=== PATIENT | male | born 1940 | race Caucasian/White ===

== ENCOUNTER 2019-12-08 23:06 | Emergency (ER) | payer MEDICARE, SELFPAY ==
[2019-12-08 23:07] VITALS: BP 107/76; PULSE 103; RESP 18; TEMP 36.3; O2SAT 95; BMI 20.9
[2019-12-08 23:09] VITALS: BP 107/76; PULSE 103; RESP 18; TEMP 36.3; O2SAT 95
--- NOTE | 2019-12-09 00:27 | ED.RN ---
PT STATES HE IS LEAVING. PT STATES I DONT THINK THIS IS ALL NECCESSARY, ITS ALL FROM MOWING THE LAWN. THIS RN EXPLAINED THE IMPORTANCE OF STAYING. PT SIGNED AMA PAPER. DR LAKHANI IS AWARE.
--- NOTE | 2019-12-09 04:50 | ED.VISSUMM ---
- ER Visit Summary Date of Service: 12/09/19 Chief Complaint: Fatigue and chills History of Present Illness: The patient is a 79 M who presents with fatigue and chills that began today. Patient states he was feeling tired while he was mowing his yard. Patient felt like he overexerted himself today. Patient states that when he was done mowing his yard he came inside and started having episode of shaking chills. Patient denies any cough or shortness of breath. Patient denies any chest pain. Patient denies any nausea or vomiting. Patient does admit to some dysuria. Patient denies any hematuria. Physical Examination: Vital signs are stable. Patient is afebrile. Patient is in no acute distress. Oral mucosa is pink and moist. Neck is supple. Trachea is midline. There is no JVD. Heart was regular rate and rhythm. Lungs are clear and equal bilaterally. Abdomen is soft. Bowel sounds are normal. There is no tenderness. Cranial nerves II through XII are intact. There are no focal motor or sensory deficits. Test Results: EKG, labs, and x-ray were ordered. Emergency Department Course and Treatment: Patient did not want to have any further testing done. Patient states he feels like he just overdid it and he overreacted by coming to the emergency department. Patient wants to go home. Patient was advised that this could be cardiac in nature and recommended staying for further evaluation. Patient refused and will leave AGAINST MEDICAL ADVICE. Patient understood. Patient was encouraged to follow-up with his primary care physician. Disposition: Discharge AGAINST MEDICAL ADVICE Impression: Fatigue This note was generated with [employer] dictation software. It may contain incorrect words, spelling, and punctuation that were not noted in review of the chart prior to signing ED Disposition - Plan for ED Patient: Disposition: Against Medical Advice Diagnosis: Fatigue Referrals: Anahy Ramirez MD [Primary Care Provider] - 3-5 Days
== END 2019-12-09 00:34 | disposition left against medical advice (07) ==
LOC: ED 12-09 00:31
PROVIDERS: Emergency Provider Emergency Medicine; PCP Internal Medicine
DX: R53.83 Other fatigue (principal); R30.0 Dysuria; R51 Headache; K21.9 Gastro-esophageal reflux disease without esophagitis; Z87.442 Personal history of urinary calculi
CPT/HCPCS: 96360; J7030; A4216

== ENCOUNTER → 2019-12-18 17:15 | Outpatient (CLI) | payer MEDICARE, SELFPAY ==
[2019-12-08 23:07] VITALS: BMI 20.9
== END ==
PROVIDERS: Visit Provider Urology
DX: N20.0 Calculus of kidney (principal)
CPT/HCPCS: 82360

== ENCOUNTER 2019-12-21 08:05 | Day surgery (SDC) | payer MEDICARE, SELFPAY ==
[2019-12-21] VITALS (8 sets, daily range): BP systolic 154–199; BP diastolic 68–95; PULSE 80–96; RESP 16–18; TEMP 36.8–38; O2SAT 92–98; BMI 20.7
[2019-12-21] MEDS: Lactated Ringers 1,000 ML 100 ML IV ×2 (08:29→10:45)
[2019-12-21] MEDS: Cefazolin 2 GM in 0.9% Normal Saline 100 ML IV (08:55)
--- NOTE | 2019-12-21 09:57 | PCM.HP.STD ---
Problem List (1) Ureteral calculi left side Status: Acute History of Present Illness Date of Admission: 12/21/19 Chief Complaint: Obstructing left ureteral calculi 3 in the left ureter and one in the kidney The patient is a 79 year old male presented the office with a large obstructing stone in the distal left ureter also has a stone up in the left kidney plan to proceed with balloon dilation of the ureter left ureteroscopy and laser lithotripsy of stones and stent placement. He understand the need a stent afterwards Past Medical History Allergies codeine Allergy (Verified 12/21/19 08:30) PT UNSURE OF REACTION Penicillins [PCN] Allergy (Verified 12/21/19 08:30) PT UNSURE OF REACTION Home Medications: Ambulatory Orders Medication Instructions Recorded Acetaminophen/Butalbital/Caffe 1 - 2 tab PO Q4H PRN PRN 12/20/19 [Fioricet] Calcitonin,[place],Synthetic 3.7 ml NS DAILY 12/20/19 [Calcitonin-[place]] Hydrocodone/Acetaminophen [[place] 1 ea PO PRN PRN 12/20/19 5-325 Tablet] Polyethylene Glycol 3350 [Miralax] 17 gm PO DAILY 12/20/19 Potassium Citrate/Citric Acid 473 ml PO DAILY 12/20/19 [Potassium Cit-Citric Acid Soln] Psyllium Husk [Metamucil] 0.4 gm PO DAILY 12/20/19 Tamsulosin HCl [Flomax] 0.4 mg PO QHS 12/20/19 Surgical History: no surgical history Smoking Status: Former smoker Tobacco Use: Non-smoker Review of Systems Constitutional: Denies: Chills, Fever, Weight Change HEENT: Denies: Head Aches, Sinus Congestion, Sinus Drainage Cardiovascular: Denies: Chest Pain, Palpitations Respiratory: Denies: Cough, Shortness of breath at rest, Sputum production Gastrointestinal: Denies: Abdominal Pain, Nausea, Vomiting Genitourinary: Denies: Dysuria Musculoskeletal: Denies: Joint Pain, Joint Tenderness Skin: Denies: Rash, Wounds Neurological: Denies: Numbness, Tingling, Focal weakness Psychiatric: Denies: Anxiety, Depression, Homicidal Ideations, Suicidal Ideations Hematologic/ Lymphatic: Denies: Easy Bruising, Easy Bleeding VTE Information - Inpt Only VTE Present on Admission: No VTE Mechan Device Prophylaxis: SCD's Patient Problems: Active and Suspected Problems Ureteral calculi left side (Acute) - Physical Exam Vitals/I&O's: Vital Signs Temp Pulse Resp BP Pulse Ox 98.2 F 87 16 154/78 H 98 12/21/19 08:30 12/21/19 08:30 12/21/19 08:30 12/21/19 08:30 12/21/19 08:30 Oxygen Delivery Method Room Air Weight: 58.4 kg Body Mass Index (BMI) 20.7 Intake and Output for Last 24 Hours 12/19/19 12/20/19 12/21/19 23:59 23:59 23:59 Intake Total 110 / 110 Balance 110 / 110 General: Alert, Oriented x3, Cooperative HEENT: Atraumatic, PERRLA, EOMI, Normocephalic Neck: Supple, No JVD, Negative Carotid Bruits Lungs: Clear to auscultation, Normal air movement Cardiovascular: Regular rate, No murmurs Abdomen: Bowel Sounds Present, Soft, Non Tender Extremities: No edema, Capillary Refill Less than 3 Seconds Skin: No rashes, No breakdown Musculoskeletal: No Tenderness to Palpation of Joints or Extremities Neurological: Cranial nerves II-XII grossly intact Psych/Mental Status: Normal Affect, Appropriate Microbiology Past 72 Hours 12/20/19 11:45 Mucosa - Nasopharyngeal Coronavirus COVID-19 PCR - Final Current Medications Lactated Ringer's () 1,000 mls @ 100 mls/hr IV .Q10H NICK Last Admin: 12/21/19 08:29 Dose: 100 mls/hr Documented by: Assessment/Plan All Active Problems Ureteral calculi left side (Acute) Plan to proceed with left ureteroscopy laser lithotripsy of stones and stent placement. Essential Procedure Criteria Procedure Essential: Yes Criteria Note: On 10/23/2019 the [place] Department of Health ([facility]) Public Order signed by [facility] Director Aida Mccarthy M.D., regarding the Management of Non-Essential Surgeries and Procedures for the purpose of preserving Personal Protective Equipment (PPE) and critical hospital capacity and resources within [place] went into effect as of 10/24/2019 at 5:00PM. According to the [facility] Public Order: This action will remain in full force and effect until the State of Emergency declared by the Governor no longer exists or the Director of the [facility] rescinds or modifies this Order.. This [facility] order stated all non-essential or elective surgeries and procedures that utilize PPE should be delayed unless there is undue risk to the current or future health of a patient. After reviewing the aforementioned [facility] Public Order and the patients clinical case, I have determined that the scheduled procedure meets the criteria to go forward. Risk to Patient if Procedure Delayed: Risk of rapidly worsening to severe symptoms if delayed
--- NOTE | 2019-12-21 09:59 | PCM.DC.URO ---
Discharge Diet: No Restrictions, Light diet - advance as tolerated Discharge Activity: Return to Normal Activity, May Not Drive - for 2 days. Additional Activity Instructions:: 70. Please be aware that pain medications may cause nausea. You should typically eat light foods as you take your pain medication. Pain medication may cause constipation, if this is a problem for you, please discuss with your doctor. Allergies/Adverse Reactions: Allergies codeine Allergy (Verified 12/21/19 08:30) PT UNSURE OF REACTION Penicillins [PCN] Allergy (Verified 12/21/19 08:30) PT UNSURE OF REACTION Medications to take at Discharge Acetaminophen/Butalbital/Caffe [Fioricet] 1 - 2 tab PO Q4H PRN PRN 12/20/19 Calcitonin,[place],Synthetic [Calcitonin-[place]] 3.7 ml NS DAILY 12/20/19 Hydrocodone/Acetaminophen [[place] 5-325 Tablet] 1 ea PO PRN PRN 12/20/19 Polyethylene Glycol 3350 [Miralax] 17 gm PO DAILY 12/20/19 Potassium Citrate/Citric Acid [Potassium Cit-Citric Acid Soln] 473 ml PO DAILY 12/20/19 Psyllium Husk [Metamucil] 0.4 gm PO DAILY 12/20/19 Tamsulosin HCl [Flomax] 0.4 mg PO QHS 12/20/19 Primary Care Physician: Anahy Ramirez MD [Primary Care Provider] - Test Results: Test results from this visit will be discussed in further detail at your follow-up appointment, if applicable. Please Follow Up With: Bashir Lam MD When: please call to make an appointment.
--- NOTE | 2019-12-21 10:03 | OP.PCM_ITS ---
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 Left ureteroscopy laser lithotripsy of stones, basket extraction of the fragments, and left stent placement. Description of Surgical Findings:: 79-year-old male presents to my office for an evaluation on CAT scan he has 3 large stones in the distal ureter that have not been able to pass spontaneously on their own he also has some stones up in the kidney peers to have one large stone in the kidney some small other smaller fragments. Today we have taken to surgery for ureteroscopy and treatment of the stone so need a stent afterwards we talked about the risk of the procedure including bleeding, infection risk of injury or trauma to the ureter or damage to the ureter pain or discomfort with the stent pain with the surgery. Patient was very agitated about pain he had a lot of problems the pain control in the past we talked about what we could do to prevent pain and and control his pain during the procedure and afterwards as best as possible understands of the stent may also given some irritation. 79-year-old male was taken back to the operating room after smooth induction of general anesthesia. He is placed supine on the table. He was placed in dors olithotomy position. The penis and testicles were prepped and draped in usual sterile fashion. Went into the bladder with a 21 Filipino rigid cystourethroscope the entire length the urethra was normal no scar tissues along the urethral channel the sphincter was intact verumontanum was identified, he did have bilateral hypertrophy with obstruction, within the bladder he had significant trabeculation throughout the bladder no tumors were seen within the bladder but multiple trabeculation the sac is healed throughout the bladder the trigone was identified the right ureter orifice was identified the left ureteral orifice was identified, I then advanced a wire up the left ureteral orifice very difficult to get past the stone appeared to have a stricture in the ureter narrowing inflammation from the stone performed a retrograde pyelogram could see this on the retrograde pyelogram could see the contrast going up to the kidney as well I then advanced a 15 Filipino balloon dilator up to the stone and got beyond it with the balloon dilator and then balloon dilated the ureteral stricture that was caused by the stone in the formation narrowing that was can prevent my ability to reach the stone. After the stone in the ureter was dilated with a balloon dilator for 2 minutes and to set to subsequent the fraction. I then advanced the Pollack catheter further up in the kidney and put a 0.038 Bentson wire up in the kidney and left this in place as a safety wire for the entire case. We then drained the bladder and then went back into the bladder with a [employer] ACMI 7 Filipino ureteroscope semirigid, got into the bladder quite easily and then I could identify the ureteral orifice balloon dilation up or been performed I went into the ureteral orifice somewhat bloody as I got in within the clots cleared out and then identified 3 large fragments that were in the distal ureter, then a 270 ?m laser fiber was used we started off with 0.6 J and 6 Hz and lasered the stones into little tiny pieces after laser lithotripsy was completed on all 3stones these were many of the fragments passed into the bladder I then used a tipless basket from [employer] to extract the majority of the fragments out of the distal ureter, an attempt was made to get 1 of the fragments but there are very small. I then went back over the safety wire with the flexible ureteroscope from [employer] and 8 Filipino was able to navigate up the ureter up into the kidney once I got into the kidney contrast was put in the kidney and inspect and inspected the upper pole of the midpole in the lower pole the kidney and the lower pole the kidney there was another fragment that was seen 200 ?m laser fiber was advanced through the ureteroscope I then engaged in laser lithotripsy and the small fragment the lower pole the kidney and the stone was broken of the little tiny pieces using a 0.6 J and 15 Hz after lasering this completely then I worked my way down the ureter under direct visualization there is no injury or trauma trauma or perforation of the ureter is worked my way down then through the ureteroscope advanced a 0.038 Glidewire up into the kidney backed the ureteroscope off the Glidewire and then over the Glidewire advanced a 6 Filipino by 26 cm stent the stent advanced under fluoroscopic guidance up into the kidney once a stent reached the kidney the wire was pulled coiled up in the kidney and then pulled the wire some more than a coiled in the bladder I then went back in the bladder with a 21 Filipino rigid cystourethroscope I pulled on the string of the stent to adjust the stent to make sure that it was coiled in the kidney and bladder in good position once this was assured then the bladder was drained the cystoscope was removed then the end of the stent was tied and cut short to prevent accidental extraction but the string was stent left on the stent for easy extraction later on in the office. I will see the patient next week in the office with with a KUB and he will need a cystoscopy and stent removal to remove the stent it was a complete lasering of all 3stones. I go and talk to the family regarding the findings and surgery. Type of Anesthesia:: General Drains: stent left side - Admit VTE Documentation VTE Present on Admission: No VTE Mechan Device Prophylaxis: SCD's
[2019-12-21] MEDS: Ketorolac 15 MG/ML Vial IV (10:42)
== END 2019-12-21 12:18 | disposition home or self-care (01) ==
LOC: SDC 08:06 → AC 08:07
PROVIDERS: PCP Internal Medicine; Referring Provider Urology; Visit Provider Urology
PROC: 0TJ98ZZ Inspection of Ureter, Via Natural or Artificial Opening Endoscopic (ICD-10-PCS; CPT 52352; principal; 2019-12-21 08:45)
DX: N20.2 Calculus of kidney with calculus of ureter (principal); N32.89 Other specified disorders of bladder; J45.20 Mild intermittent asthma, uncomplicated; G43.909 Migraine, unspecified, not intractable, without status migrainosus; Z87.442 Personal history of urinary calculi; Z87.891 Personal history of nicotine dependence; Z88.0 Allergy status to penicillin; Z11.59 Encounter for screening for other viral diseases
CPT/HCPCS: 00918; 52356; 76000; 87635; G2023; J7120; C1726; C1769; C2617; J2405; U0002

== ENCOUNTER → 2019-12-25 08:37 | Outpatient (CLI) | payer MEDICARE, SELFPAY ==
[2019-12-21 08:30] VITALS: BMI 20.7
--- NOTE | 2019-12-25 08:42 | RAD_ITS ---
STUDY: X-RAY - ABDOMEN/PELVIS REASON FOR EXAM: Male, 79 years old. follow up kidney stones, surgery 12-21-19 TECHNIQUE: Single AP view of the abdomen / pelvis. COMPARISON: None. FINDINGS: Normal visualized lung bases. There is an unremarkable bowel gas pattern. There is no demonstrated free abdominal air. The visualized liver, spleen and kidneys are grossly normal in size and morphology. There is a left ureter stent in good position. Normal soft tissue structures. There are diffuse degenerative changes of the visualized lumbar spine. RAD/Abdomen Single View IMPRESSION: Normal x-ray examination of the abdomen and pelvis. Electronically Signed: Grecia Diaz, at 14:39 EDT Tel , Service support ,
== END ==
PROVIDERS: PCP Internal Medicine; Referring Provider Urology; Visit Provider Urology
DX: N20.2 Calculus of kidney with calculus of ureter (principal)
CPT/HCPCS: 74018

== ENCOUNTER → 2021-03-16 12:37 | Outpatient (CLI) | payer MEDICARE, SELFPAY ==
[2019-12-21 08:30] VITALS: BMI 20.7
--- NOTE | 2021-03-16 12:46 | CDU_ITS ---
Reason For Study: Hollenhorst plaque, left eye Rt. Velocities/BP Lt. Velocities/BP Prox CCA 99.5/13.4 cm/sec. Prox CCA 99.8/15.1 cm/sec. Mid CCA 72.1/12.1 cm/sec. Mid CCA 91.3/16.3 cm/sec. Dist CCA 60.4/13.4 cm/sec. Dist CCA 67.9/11.4 cm/sec. Prox ICA 58.6/12.4 cm/sec. Prox ICA 65.5/15.1 cm/sec. Mid ICA 59.7/14.6 cm/sec. Mid ICA 64.2/18.8 cm/sec. Dist ICA 54.2/14.6 cm/sec. Dist ICA 69.1/18.8 cm/sec. Rt. ICA/CCA = 0.83. Lt. ICA/CCA = 0.76. Prox ECA 74.7/8.2 cm/sec. Prox ECA 103.5/13.9 cm/sec. Rt. Vert. 44.3 cm/sec. Lt. Vert. 41.3/8.1 cm/sec. Right Extracranial There is homogeneous, smooth atherosclerotic plaque noted in the right common carotid artery. There is heterogeneous, irregular atherosclerotic plaque noted in the right internal carotid artery. There is intimal thickening but no significant atherosclerotic plaque noted in the right external carotid artery. Antegrade flow is noted in the right vertebral artery. Left Extracranial There is homogeneous, smooth atherosclerotic plaque noted in the left common carotid artery. There is heterogeneous, irregular atherosclerotic plaque noted in the left internal carotid artery. There is intimal thickening but no significant atherosclerotic plaque noted in the left external carotid artery. Antegrade flow is noted in the left vertebral artery. There is heterogeneous, irregular atherosclerotic plaque noted in the left bulb. Procedure Carotid Duplex 73176. This is a Carotid Duplex examination using B-mode, color flow and specral Doppler. Exam performed in department. VL/Carotid Duplex Ultrasound Interpretation Summary Mild (<50%) stenosis right extracranial internal carotid. Mild (<50%) stenosis left extracranial internal carotid. Flow within the vertebral arteries is antegrade bilaterally. Heterogeneous, irregular atherosclerotic plaque is noted in the left carotid bulb, which does not appear to be hemodynamically significant. Ordering Physician: Peyman Galvan Referring Physician: Anahy Ramirez M.D. Performed By: Lulú Lopez RVT
== END ==
PROVIDERS: PCP Internal Medicine; Referring Provider Ophthalmology; Visit Provider Ophthalmology
DX: H34.212 Partial retinal artery occlusion, left eye (principal)
CPT/HCPCS: 93880

== ENCOUNTER 2022-11-01 14:42 | Emergency (ER) | payer MEDICARE, SELFPAY ==
[2022-11-01 14:44] VITALS: BP 123/83; PULSE 78; RESP 18; TEMP 36.4; O2SAT 98; BMI 19.7
--- NOTE | 2022-11-01 14:51 | CM.ED ---
Social Work Note Referral Source: Pawan with Adult Protective Services Referral reason: SN[facility] Pawan with APS contacted BERNABE and reports the patient is on his way to ED due to weakness and increase in depressive symptoms since his was placed at [facility]. Pawan reports the patient wasn't eating or caring for himself, however, patient stayed over the weekend at [facility] with his as [facility] staff were concerned about patient being home alone. During patient's time at [facility] he did eat and wants to be placed at [facility] with his . BERNABE explained due to patient's insurance he would need precert for skilled, BERNABE will follow up with MD and patient once he arrives. Pawan requesting update regarding patient's discharge. Maricruz Durant MSW, GILMA
--- NOTE | 2022-11-01 15:32 | CT_ITS ---
STUDY: CT BRAIN WITHOUT CONTRAST REASON FOR EXAM: Male, 82 years old. Acute change mental status RADIATION DOSAGE (If Supplied By Facility): CTDIvol = ( 47.06 ) mGy, DLP = ( 837.39 ) mGycm TECHNIQUE: Transaxial CT imaging of the brain was performed without administration of intravenous contrast material. Individualized dose optimization techniques were used for this CT. COMPARISON: No relevant priors. FINDINGS: Normal soft tissue structures. Normal calvarium. Prominent ventricles and extra-axial spaces with atrophy. Mild white matter microangiopathic ischemic changes of the cerebral hemispheres. Normal basal ganglia and thalami. Normal brainstem. Normal cerebellum. There is no intracranial hemorrhage. There are no findings of an acute ischemic infarction. Normal visualized paranasal sinuses. CT/Brain/Head without Contrast IMPRESSION: Mild age-related changes. No acute intracranial pathology of the brain. Electronically Signed: Albaro Ortiz DO at 16:36 EDT ,
--- NOTE | 2022-11-01 15:40 | EDS_ITS ---
HPI History of Present Illness Chief Complaint: Weakness Detail of Chief Complaint: Inability to care for self, mental status change, unintentional weight loss Informant: patient and friend (Neighbor who has been involved for the past week.) Onset/Context/Timing Onset: - (Unknown. Per neighbor past several months) Context: - (Unknown) Timing: Continuous Quality: Forgetfulness, inability to care for self, weight loss, Location: Resides at home Current Severity: Unable to determine. Significant per neighbor Maximum Severity: Severe Worsened by: Unknown Relieved by: Unknown Associated Symptoms Associated Symptoms: Unknown Narrative Narrative: Patient is an 82-year-old male with history of hypertension who had Norvasc added to his present regimen. He states his primary care physician is Dr. Ramirez. He states things have gone haywire in his head. He denies headache, visual, ocular auditory symptoms. Nuys change in speech. Denies difficulty swallowing. He denies respiratory or cardiac symptoms. He denies nausea, vomiting or diarrhea. He denies change in bowels. He denies paresthesia, anesthesia or motor weakness. He does endorse significant weight loss over the past year. Neighbor who is willing to take him to a assisted if medically cleared inform he prior to this past week he had not seen him for Karishma months. He states this is a significant cell changer the past couple of months. He informed me that his was seen last Tuesday after a fall. She missed her dialysis on Tuesday. She missed another dialysis. She was admitted to hospital and he has been living at home by himself. Per neighbor there is some disarray at the home and concern he is unable to care for himself. Patient is a poor informant. He is not oriented. Prior similar symptoms: No Recent Illness/Hospitalization: No (Last ER visit was December 2019. laboratory results are July 2012.) [facility] Medical History (Updated 11/01/22 @ 16:[address] Thom Gillespie MD) Ureteral calculi left side Home Medications zsvvekpqna-jmkblowyrkysx-uygereac 50 mg-325 mg-40 mg tablet 1 - 2 tab PO Q4H PRN PRN Migraine Symptoms 12/20/19 [History Last Taken Unknown] amlodipine 2.5 mg tablet 2.5 mg PO DAILY 11/01/22 [History Last Taken Unknown] Allergy/AdvReac Type Severity Reaction Status Date / Time codeine Allergy PT UNSURE Verified 11/01/22 14:46 OF REACTION Penicillins [PCN] Allergy PT UNSURE Verified 11/01/22 14:46 OF REACTION Social History (Updated 11/01/22 @ 15:[address] Thom Gillespie MD) household members: spouse and other details: Presently living by himself. Smoking Status: Former smoker substance use type: does not use ROS ROS ED Review of Systems ROS Unobtainable: due to mental status and other Details: Limited due to change in mental status. Please read HPI narrative EXAM Physical Exam Const Vital Signs: 11/01/22 14:44 11/01/22 16:13 Temperature 97.6 F L Temperature Source Temporal Pulse Rate 78 Respiratory Rate 18 Respiratory Effort Normal Non-Labored Respiratory Pattern Normal Blood Pressure 123/83 H Blood Pressure Mean 96 Pulse Ox 98 Oxygen Delivery Method Room Air Positive cachectic General Appearance ED: cachectic and NAD; Negative for cyanotic or diaphoretic Nutritional Appearance: cachectic HEENT Reports dry mucous membranes HEENT Narrative: Head is atraumatic normocephalic. Ears normal. Nares patent. Uvula midline. Posterior pharynx is normal. Mouth ED: Yes dry mucous membranes Mouth: dry mucous membranes Eyes PERRL and EOMs intact bilaterally General Eye ED: Negative for pale conjunctiva or scleral icterus Neck no lymphadenopathy, supple and no JVD Chest Wall inspection of chest normal and palpation of chest normal Resp normal respiratory effort and clear to auscultation bilaterally Cardio regular rate, regular rhythm, S1 normal heart sound, S2 normal heart sound and no murmurs GI normal to inspection, nondistended, normoactive bowel sounds, non-tender, non- distended and no masses; Negative for hepatosplenomegaly Back/Spine no CVA tenderness Extremity normal to inspection General Extremety ED: Negative for edema or tenderness General Extremity: Negative for edema Neuro No oriented x3, CN's II-XII intact bilaterally and no sensory deficits noted Neuro Narrative: There is no clonus or Babinski sign right or left. Sensorium / Orientation: alert Psych Psych Narrative: Difficult to assess. Affect is flat. Skin no rashes or lesions noted, no wounds and No skin turgor normal General Skin Exam: Negative for elasticity normal or jaundice MDM MDM MDM Narrative Medical decision making narrative: History is limited due to altered mental status. With unintentional weight loss altered mental status will obtain CT of the head and chest to assess for malignancy. Blood work was obtained to assess for anemia, kidney failure, electrolyte abnormality. Hepatic profile was obtained to assess alkaline phosphatase and liver enzymes in the event a neoplasm is found and would be suggestive of metastasis. History & Record Review Discussion w/independent historian: Other (Neighbor as documented in the HPI narrative) Additional record(s) reviewed:: Prior outpatient record, Prior ED visit, Prior labs and Other (Prior outpatient record, ER record and labs were documented in the HPI narrative) Lab Data Attestation: I reviewed the patient's lab results. Lab results narrative: CBC is unremarkable. MCV is elevated. Comprehensive metabolic panel is remarkable for BUN of 19 otherwise all lab tests are negative. Labs: Laboratory Results - last 24 hr 11/01/22 11/01/22 15:50 15:50 WBC 5.1 RBC 4.24 L Hgb 13.7 Hct 42.0 MCV 99.1 H MCH 32.3 H MCHC 32.6 RDW Std Deviation 50.3 H RDW Coeff of Hilary 13.8 Plt Count 260 MPV 9.7 Immature Gran % (Auto) 0.400 Neut % (Auto) 70.6 H Lymph % (Auto) 14.8 L [place] % (Auto) 13.4 H Eos % (Auto) 0.6 Baso % (Auto) 0.2 Absolute Neuts (auto) 3.6 Absolute Lymphs (auto) 0.75 L Nucleated RBC % 0 Sodium 140 Potassium 3.5 Chloride 107 Carbon Dioxide 27.0 Anion Gap 6 BUN 19 H Creatinine 1.02 Estim Creat Clear Calc 42.30 Est GFR (MDRD) Af Amer 89 Est GFR (MDRD) Non-Af 74 BUN/Creatinine Ratio 18.6 Glucose 106 Calcium 9.0 Total Bilirubin 0.70 Direct Bilirubin 0.24 AST 25 ALT 34 Alkaline Phosphatase 64 Total Protein 7.4 Albumin 3.7 Globulin 3.7 Radiography Chest X-Ray - ED: 2 View and Read by ED Physician (2 view chest x-ray was independent reviewed interpreted by me and reveals no evidence of acute process. There is changes consistent with pulmonary disease. There are no lung lesions, infiltrates. There is no effusion. Mediastinum is normal. Cardiac silhouette size is normal. Osseous structures) Diagnostic Testing: Clinical Impression(s) from Imaging Studies Brain CT 11/01/22 15:32 IMPRESSION: Mild age-related changes. No acute intracranial pathology of the brain. Electronically Signed: Albaro Ortiz DO at 16:36 EDT , Chest X-Ray 11/01/22 16:02 IMPRESSION: No radiographic evidence of acute cardiopulmonary disease. Electronically Signed: Albaro Ortiz DO at 16:17 EDT , Management Discussion w/another healthcare provider: structural metal worker/Case management and Other Treatment and Re-Evaluation :: Since patient's CAT scan, chest x-ray, DBC basic metabolic panel liver profile are all normal he will be discharged to nursing facility. Neighbor is willing to take him. Discharge Plan Triage Chief Complaint: Weakness ED Provider: Thom Gillespie Dx/Rx/DC Orders Clinical Impression: Dementia, Hypertension, Acute alteration in mental status, Unintentional weight loss of less than 10% body weight within 6 months, Adult failure to thrive Instructions: ED CAREGIVER SUPPORT for DEMENTIA Prescriptions: No Action uzrsgvmqzx-bokkqkusrefrl-wzlm 1 TABLET tablet 1 - 2 tab PO Q4H PRN PRN (Reason: Migraine Symptoms) amlodipine 2.5 mg tablet 2.5 mg PO DAILY Label Comments: take 1 tablet by mouth once daily Primary Care Provider: Anahy Ramirez Referrals: Anahy Ramirez MD [Primary Care Provider] - Disposition Disposition: [facility]
[2022-11-01 16:00] LABS: Absolute Lymphocyte Count 0.75 X10^3/uL (0.83-4.51); Absolute Neutrophil Count 3.6 X10^3/uL (2.0-7.7); Basophil# 0.01 X10^3/uL; Basophil% 0.2 % (0-1); Eosinophil# 0.03 X10^3/uL; Eosinophils% 0.6 % (0-5); Hemoglobin 13.7 g/dL (13.0-16.5); Lymphocyte # 0.75 X10^3/ul (0.83-4.51); Lymphocyte % 14.8 % (19-41); Mean Corp Hgb Conc 32.6 g/dL (32-36); Mean Corpuscular Hgb 32.3 pg (27.0-32.0); Mean Corpuscular Volume 99.1 fL (80-94); Mean Platelet Vol. 9.7 fl (6.2-12.0); Monocyte# 0.68 X10^3/uL; Monocyte% 13.4 % (0-10); NRBC Flagged by Analyzer 0 % (0-5); Neutrophil # 3.57 X10^3/uL (2.7-7.7); Neutrophil % 70.6 % (47-70); Platelet Count 260 K/mm3 (150-450); RBC Distribution Width CV 13.8 % (11.6-14.6); RBC Distribution Width SD 50.3 fl (35.1-43.9); Red Blood Count 4.24 M/mm3 (4.6-6.2); White Blood Count 5.1 K/mm3 (4.4-11.0)
--- NOTE | 2022-11-01 16:02 | RAD_ITS ---
INDICATION: Unintentional weight loss, cachexia EXAMINATION/TECHNIQUE: X-RAY - XR Chest 2 Views COMPARISON: None. FINDINGS: LINES/DEVICES: None. LUNGS: No consolidation, edema or effusion. No pneumothorax. MEDIASTINUM AND CARDIOVASCULAR STRUCTURES: Cardiac silhouette not enlarged. Central airways and mediastinal contour are unremarkable. BONES AND SOFT TISSUES: Unremarkable. RAD/Chest PA and Lateral IMPRESSION: No radiographic evidence of acute cardiopulmonary disease. Electronically Signed: Albaro Ortiz DO at 16:17 EDT Reading Location ID and State: [facility] / [place] Tel [phone], Service support ,
[2022-11-01 16:13] LABS: AST(SGOT) 25 U/L (15-37); Alanine Aminotransfer ALT/SGPT 34 U/L (16-61); Albumin, Serum 3.7 g/dL (3.2-5.0); Alkaline Phosphatase 64 U/L (45-117); Anion Gap 6 (5-15); BUN 19 mg/dL (7-18); BUN/Creat Ratio 18.6 RATIO (10-20); Bilirubin, Direct 0.24 mg/dL (0.00-0.30); Chloride 107 mmol/L (98-107); Creatinine, Serum 1.02 mg/dL (0.70-1.30); EST Glomerular Filtration Rate 74 mL/min (>60); Est Glom Filt Rate - Afr Amer 89 mL/min (>60); Globulin 3.7 g/dL (2.2-4.2); Glucose 106 mg/dL (74-106); Potassium 3.5 mmol/L (3.5-5.1); Protein, Total 7.4 g/dL (6.4-8.2); Sodium Level 140 mmol/L (136-145)
--- NOTE | 2022-11-01 17:15 | CM.ED ---
Social Work Note RUSSELL [place] met with BERNABE and reviewed patient's presenting needs, explaining patient was instructed to come to ED for assistance with longterm placement. BERNABE reviewed conversation with [facility] and will follow up with [facility]. BERNABE contacted [facility] admissions staff, and inquired about their knowledge of patient. Laverne explained patient's is currently a resident and will be private paying for the patient to also stay at [facility]. Laverne reports they need an H&P, med list and order for longterm sent via [employer]. Laverne reports she can complete the PASRR for patient and patient can come to [facility] tonight. BERNABE updated RUSSELL [place] who reviewed needs with MD Gillespie. MD Gillespie to meet with patient to determine medical clearance. BERNABE introduced herself to patient and patient's neighbor who assisted in bringing patient into the ED and offered to take patient to [facility] once he is discharged. BERNABE confirmed with patient he wants to go to [facility]. Patient reports he does so he can be with his as they take care of each other. BERNABE explained conversation she had with [facility] admissions staff so patient is aware of the process. Patient reports understanding. SW informed by MD Gillespie patient is medically cleared for SNF. BERNABE sent requested documents to [facility] via [employer]. BERNABE then contacted [facility] to ensure she received documents. Laverne confirmed she has what is needed for patient to come to [facility]. BERNABE informed [facility] patient will be brought in by his neighbor. BERNABE updated RN patient can be discharged to [facility]. Plan: [facility], self pay, Laverne to complete the PASRR, neighbor to transport. Maricruz Durant HAT MARKER, GILMA
--- NOTE | 2022-11-03 10:56 | CM.ED ---
Social Work - ED Spoke with [facility] at [facility] ([phone]) today and updated to patient's disposition. -ROMULO Jones, TRANSPORTATION SPECIALIST
== END 2022-11-01 17:19 | disposition skilled nursing facility (03) ==
PROVIDERS: Emergency Provider Emergency Medicine; PCP Internal Medicine; Visit Provider Emergency Medicine
DX: R62.7 Adult failure to thrive (principal); F03.90 Unspecified dementia, unspecified severity, without behavioral disturbance, psychotic disturbance, mood disturbance, and anxiety; R53.1 Weakness; I10 Essential (primary) hypertension; Z87.891 Personal history of nicotine dependence; R63.4 Abnormal weight loss; R41.82 Altered mental status, unspecified; Z87.442 Personal history of urinary calculi
CPT/HCPCS: 70450; 71046; 80048; 80076; 85025; 99282

== ENCOUNTER → 2022-11-03 | Outpatient (REF) | payer MEDICARE, SELFPAY ==
[2022-11-03 07:34] LABS: Hematocrit 39.9 % (40-54); Hemoglobin 12.9 g/dL (13.0-16.5); Mean Corp Hgb Conc 32.3 g/dL (32-36); Mean Corpuscular Hgb 32.3 pg (27.0-32.0); Mean Corpuscular Volume 99.8 fL (80-94); Mean Platelet Vol. 10.1 fl (6.2-12.0); Platelet Count 269 K/mm3 (150-450); RBC Distribution Width CV 13.6 % (11.6-14.6); RBC Distribution Width SD 50.4 fl (35.1-43.9); White Blood Count 4.9 K/mm3 (4.4-11.0)
[2022-11-03 07:55] LABS: BUN 18 mg/dL (7-18); Creatinine, Serum 0.88 mg/dL (0.70-1.30); Glucose 93 mg/dL (74-106)
[2022-11-03 07:56] LABS: Anion Gap 4 (5-15); BUN/Creat Ratio 20.3 RATIO (10-20); Chloride 109 mmol/L (98-107); EST Glomerular Filtration Rate 87 mL/min (>60); Est Glom Filt Rate - Afr Amer 105 mL/min (>60); Potassium 3.5 mmol/L (3.5-5.1); Sodium Level 141 mmol/L (136-145)
== END ==
LOC: OLS.SW 05:00
PROVIDERS: PCP Internal Medicine; Visit Provider Family Medicine
DX: R79.9 Abnormal finding of blood chemistry, unspecified (principal); Z13.228 Encounter for screening for other metabolic disorders
CPT/HCPCS: 36415; 80048; 85027

== ENCOUNTER → 2022-12-02 | Outpatient (REF) | payer MEDICARE, SELFPAY ==
[2022-12-02 08:20] LABS: Hematocrit 34.6 % (40-54); Mean Corp Hgb Conc 31.8 g/dL (32-36); Mean Corpuscular Hgb 32.4 pg (27.0-32.0); Mean Corpuscular Volume 102.1 fL (80-94); Mean Platelet Vol. 10.1 fl (6.2-12.0); Platelet Count 223 K/mm3 (150-450); RBC Distribution Width CV 15.3 % (11.6-14.6); RBC Distribution Width SD 57.4 fl (35.1-43.9); Red Blood Count 3.39 M/mm3 (4.6-6.2); White Blood Count 3.7 K/mm3 (4.4-11.0)
[2022-12-02 08:31] LABS: Anion Gap 3 (5-15); BUN 17 mg/dL (7-18); BUN/Creat Ratio 23.1 RATIO (10-20); Calcium,Total 8.9 mg/dL (8.5-10.1); Chloride 111 mmol/L (98-107); Creatinine, Serum 0.74 mg/dL (0.70-1.30); EST Glomerular Filtration Rate 108 mL/min (>60); Est Glom Filt Rate - Afr Amer 130 mL/min (>60); Glucose 86 mg/dL (74-106); Potassium 3.8 mmol/L (3.5-5.1); Sodium Level 140 mmol/L (136-145)
== END ==
LOC: OLS.SW 05:00
PROVIDERS: PCP Internal Medicine; Visit Provider Family Medicine
DX: R79.9 Abnormal finding of blood chemistry, unspecified (principal); Z13.228 Encounter for screening for other metabolic disorders
CPT/HCPCS: 36415; 80048; 85027

== ENCOUNTER → 2022-12-30 | Outpatient (REF) | payer MEDICARE, SELFPAY ==
[2022-12-30 07:36] LABS: Hematocrit 40.4 % (40-54); Hemoglobin 12.7 g/dL (13.0-16.5); Mean Corp Hgb Conc 31.4 g/dL (32-36); Mean Corpuscular Hgb 32.6 pg (27.0-32.0); Mean Corpuscular Volume 103.9 fL (80-94); Mean Platelet Vol. 10.5 fl (6.2-12.0); Platelet Count 232 K/mm3 (150-450); RBC Distribution Width CV 14.7 % (11.6-14.6); Red Blood Count 3.89 M/mm3 (4.6-6.2); White Blood Count 5.3 K/mm3 (4.4-11.0)
[2022-12-30 07:50] LABS: Anion Gap 3 (5-15); BUN 24 mg/dL (7-18); BUN/Creat Ratio 26.9 RATIO (10-20); Calcium,Total 9.8 mg/dL (8.5-10.1); Chloride 109 mmol/L (98-107); Creatinine, Serum 0.89 mg/dL (0.70-1.30); EST Glomerular Filtration Rate 86 mL/min (>60); Est Glom Filt Rate - Afr Amer 104 mL/min (>60); Glucose 88 mg/dL (74-106); Potassium 4.2 mmol/L (3.5-5.1); Sodium Level 142 mmol/L (136-145)
== END ==
LOC: OLS.SW 05:00
PROVIDERS: PCP Internal Medicine; Visit Provider Family Medicine
DX: R79.9 Abnormal finding of blood chemistry, unspecified (principal); Z13.228 Encounter for screening for other metabolic disorders
CPT/HCPCS: 36415; 80048; 85027

== ENCOUNTER → 2023-01-27 | Outpatient (REF) | payer MEDICARE, SELFPAY ==
[2023-01-27 09:24] LABS: Hematocrit 37.9 % (40-54); Mean Corp Hgb Conc 31.7 g/dL (32-36); Mean Corpuscular Hgb 32.3 pg (27.0-32.0); Mean Corpuscular Volume 102.2 fL (80-94); Mean Platelet Vol. 10.1 fl (6.2-12.0); Platelet Count 209 K/mm3 (150-450); RBC Distribution Width CV 13.8 % (11.6-14.6); Red Blood Count 3.71 M/mm3 (4.6-6.2)
[2023-01-27 09:32] LABS: Anion Gap 4 (5-15); BUN 15 mg/dL (7-18); BUN/Creat Ratio 20.4 RATIO (10-20); Calcium,Total 9.5 mg/dL (8.5-10.1); Chloride 109 mmol/L (98-107); Creatinine, Serum 0.73 mg/dL (0.70-1.30); EST Glomerular Filtration Rate 108 mL/min (>60); Est Glom Filt Rate - Afr Amer 131 mL/min (>60); Glucose 84 mg/dL (74-106); Potassium 4.1 mmol/L (3.5-5.1); Sodium Level 142 mmol/L (136-145)
== END ==
LOC: OLS.SW 05:00
PROVIDERS: PCP Internal Medicine; Visit Provider Family Medicine
DX: Z13.228 Encounter for screening for other metabolic disorders (principal); R79.9 Abnormal finding of blood chemistry, unspecified
CPT/HCPCS: 36415; 80048; 85027

== ENCOUNTER → 2023-02-24 | Outpatient (REF) | payer MEDICARE, SELFPAY ==
[2023-02-24 09:50] LABS: Hematocrit 36.1 % (40-54); Hemoglobin 11.3 g/dL (13.0-16.5); Mean Corp Hgb Conc 31.3 g/dL (32-36); Mean Corpuscular Hgb 31.8 pg (27.0-32.0); Mean Corpuscular Volume 101.7 fL (80-94); Mean Platelet Vol. 10.5 fl (6.2-12.0); Platelet Count 210 K/mm3 (150-450); RBC Distribution Width CV 13.9 % (11.6-14.6); RBC Distribution Width SD 52.8 fl (35.1-43.9); Red Blood Count 3.55 M/mm3 (4.6-6.2); White Blood Count 5.3 K/mm3 (4.4-11.0)
[2023-02-24 10:10] LABS: Anion Gap 4 (5-15); BUN 20 mg/dL (7-18); BUN/Creat Ratio 23.3 RATIO (10-20); Calcium,Total 9.2 mg/dL (8.5-10.1); Chloride 108 mmol/L (98-107); Creatinine, Serum 0.86 mg/dL (0.70-1.30); EST Glomerular Filtration Rate 90 mL/min (>60); Est Glom Filt Rate - Afr Amer 109 mL/min (>60); Glucose 82 mg/dL (74-106); Potassium 4.3 mmol/L (3.5-5.1); Sodium Level 141 mmol/L (136-145)
== END ==
LOC: OLS.SW 05:00
PROVIDERS: PCP Internal Medicine; Visit Provider Family Medicine
DX: Z13.228 Encounter for screening for other metabolic disorders (principal); R79.9 Abnormal finding of blood chemistry, unspecified
CPT/HCPCS: 36415; 80048; 85027